=== PATIENT | male | born 1990 | race Caucasian/White ===

== ENCOUNTER 2017-01-29 22:27 | Emergency (ER) | payer OTHER ==
[~2017-01-29] VITALS: Ht 167.6 cm; Wt 99.8 kg
[~2017-01-29 22:27] MED LIST: UNK ALLERGY MED PO
[2017-01-29 22:28] VITALS: BP 146/91
[2017-01-29] MEDS ORDERED: ONDANSETRON 4 MG/2 ML VIAL IVP ONE (23:20)
[2017-01-29] MEDS ORDERED: NACL 0.9% 1,000 ML IV SCH (23:20)
[2017-01-29] MEDS ORDERED: FAMOTIDINE 20 MG/2 ML VIAL IVP ONE (23:20)
--- NOTE | 2017-01-29 23:22 | NUR ---
PATIENT LEFT WITHOUT BEING SEEN BY DR. BENITEZ. NO FURTHER CARE PROVIDED FOR PATIENT.
== END 2017-01-29 23:23 | disposition left against medical advice (07) ==
LOC: MED 22:27
DX: R10.9 Unspecified abdominal pain (principal); R53.1 Weakness; Z53.21 Procedure and treatment not carried out due to patient leaving prior to being seen by health care provider

== ENCOUNTER 2017-01-30 07:47 | Emergency (ER) | payer OTHER ==
[~2017-01-30] VITALS: Ht 167.6 cm; Wt 99.8 kg
[2017-01-30 07:54] VITALS: BP 116/62
--- NOTE | 2017-01-30 07:57 | NUR ---
PATIENT AMBULATED TO BED 4 AT THIS TIME.
--- NOTE | 2017-01-30 08:00 | NUR ---
PATIENT PRESENTS TO ED WITH MEDIAL ABD PAIN X1 DAY WITH VOMITING AND GEN WEAKNESS; DENIES DIARRHEA; SKIN IS PINK/WARM/DRY; AAOX4 WITH EVEN AND STEADY GAIT; LUNGS CLEAR BL; HR EVEN AND REGULAR; PT DENIES ANY FEVER, CP, SOB, OR COUGH AT THIS TIME; PATIENT STATES PAIN OF 5/10 AT THIS TIME; VSS; PATIENT POSITIONED FOR COMFORT; HOB ELEVATED; BEDRAILS UP X2; BED DOWN. ER MD MADE AWARE OF PT STATUS.
--- NOTE | 2017-01-30 08:18 | NUR ---
4MG ZOFRAN ODT GIVEN PO PER DR BRASHER
[2017-01-30] MEDS ORDERED: ONDANSETRON 4 MG ODT ONE (08:20)
--- NOTE | 2017-01-30 08:33 | NUR ---
POST ZOFRAN MEDICATION NADR AT THIS TIME, PER PT STILL HAS C/O ABDOMINAL PAIN OF 5/10, DR BRASHER NOTIFIED AWAITING ORDERS
[2017-01-30] MEDS ORDERED: MAGNESIUM HYDROXIDE 2400 MG/30 ML UDC ONE (09:01)
[2017-01-30] MEDS ORDERED: LIDOCAINE VISCOUS 2% 20 ML UDC ONE (09:03)
[2017-01-30] MEDS ORDERED: BELLADONNA/PHENOBARBITAL 5 ML ORASYR ONE (09:04)
--- NOTE | 2017-01-30 09:06 | NUR ---
GI COCKTAIL GIVEN, 30ML MILK OF MAGNESIA, 10 ML PHENOBARBITAL, 10 ML 1% VISCOUS LIDOCAINE PER DR BRASHER
--- NOTE | 2017-01-30 09:15 | NUR ---
VSS, PT FEELS NUMB ON THE THROAT AREA, STILL C/O ABDOMINAL PAIN WILL CONTINUE TO MONITOR
--- NOTE | 2017-01-30 09:21 | NUR ---
POST GI COCKTAIL NO C/O PAIN OR NAUSEA, DR BRASHER NOTIFIED
[2017-01-30] MEDS ORDERED: ALUMINUM HYD/MAG/SIMETHICONE 30 ML, BELLADONNA/PHENOBARBITAL 10 ML, LIDOCAINE VISCOUS 2... PO ONE (09:30)
[2017-01-30 09:55] VITALS: BP 113/74
--- NOTE | 2017-01-30 09:55 | NUR ---
Patient discharged with v/s stable. Written and verbal after care instructions given and explained. Patient alert, oriented and verbalized understanding of instructions. Ambulatory with steady gait. All questions addressed prior to discharge. ID band removed. Patient advised to follow up with PMD. Rx of MOTRIN, ZOFRAN given. Patient educated on indication of medication including possible reaction and side effects. Opportunity to ask questions provided and answered.
[2017-01-30] MEDS ORDERED: ONDANSETRON 4 MG ODT PO ONE (10:35)
== END 2017-01-30 09:55 | disposition home or self-care (01) ==
LOC: MED 07:47
DX: R10.13 Epigastric pain (principal); R11.2 Nausea with vomiting, unspecified; R50.9 Fever, unspecified
CPT/HCPCS: 81002; 99283; S0119